=== PATIENT | male | born 1995 | race Caucasian/White ===

== ENCOUNTER 2021-03-09 11:49 | Emergency (ER) | payer MEDICAID | END 2021-03-09 13:35 | disposition short-term general hospital (02) | LOC: ER1 11:49 | DX: T25.212A Burn of second degree of left ankle, initial encounter (principal); T25.222A Burn of second degree of left foot, initial encounter; T31.0 Burns involving less than 10% of body surface; F17.200 Nicotine dependence, unspecified, uncomplicated; X08.8XXA Exposure to other specified smoke, fire and flames, initial encounter | CPT/HCPCS: 90715; 99284; J0690; J1170 ==

== ENCOUNTER 2021-12-08 14:58 | Emergency (ER) | payer OTHER ==
[2021-12-08] MEDS ORDERED: CEPHALEXIN500 M1 PO (16:53)
== END 2021-12-08 17:17 | disposition home or self-care (01) ==
LOC: ER1 14:58
DX: S81.012A Laceration without foreign body, left knee, initial encounter (principal); F17.210 Nicotine dependence, cigarettes, uncomplicated; Z23 Encounter for immunization; W45.8XXA Other foreign body or object entering through skin, initial encounter
CPT/HCPCS: 12004; 73564; 90715; 99282